=== PATIENT | female | born 1995 | race Caucasian/White ===

== ENCOUNTER 2016-07-23 20:42 | Emergency (ER) | payer OTHER ==
[~2016-07-23] VITALS: Ht 177.8 cm; Wt 144.0 kg
[~2016-07-23 20:42] MED LIST: CEPH500C3 PO; ZOFR4TAB3 PO
[2016-07-23 20:44] VITALS: BP 164/90; PULSE 104; RESP 18; TEMP 98.4; O2SAT 97
[2016-07-23] MEDS ORDERED: POLY10O EACH EYE (21:51)
[2016-07-23] MEDS ORDERED: FEXO15TA PO (21:51)
--- NOTE | 2016-07-23 21:55 | PD ---
HPI Chief Complaint: Eye Problems/Injury Time Seen by Provider: 21:52 Travel History International Travel<30 days: No Contact w/Intl Traveler<30days: No Traveled to known affect area: No History of Present Illness HPI 20-year-old white female presents to emergency department with complains of bilateral eye irritation. She states that she has noted that she has had some tearing coming from her left eye. Her eye is becoming somewhat red and injected. He feels irritated. She has been rubbing her eyes. She works at a veterinary clinic. She states that she did not get anything in her eye as far she knows. She does have seasonal allergies and usually takes Lori but hasn' t been out. She denies any fever or chills. She always has a runny nose some congestion. No diplopia, blurred vision, photophobia, no foreign body sensation , matting. Slight irritation and itching. PFSH Past Medical History Narrative Medical sEASONAL ALLERGIES Developmental Delay: No Diminished Hearing: No Genitourinary: Yes (UTI'S) Immunizations Current: Yes Tetanus Vaccination: > 5 Years ?: Not LMP: 07/19/16 : 0 Past Surgical History Surgical History: No Previous Surgery Social History Alcohol Use: Yes Tobacco Use: No Substance Use: No Allergies-Medications (Allergen,Severity, Reaction): Coded Allergies: No Known Allergies (Verified , 07/23/16) Reported Meds & Prescriptions Reported Meds & Active Scripts Active Lori Allergy (Fexofenadine HCl) 180 Mg Tab 180 Mg PO DAILY Polytrim Opth Drops (Polymyxin/Trimethoprim Sulfate) 10,000-0.1 Unit/Ml-% Soln 1 Drop EACH EYE 4-6HR 7 Days Reported Zofran ODT (Ondansetron HCl) 4 Mg Tab 4 Mg PO Q4HR PRN Keflex (Cephalexin Monohydrate) 500 Mg Cap 500 Mg PO Q8 Review of Systems Except as stated in HPI: all other systems reviewed are Neg General / Constitutional: No: Fever, Chills Eyes: Positive: Redness, Tearing, No: Diploplia, Blurred Vision, Photophobia, Drainage, Foreign Body Sensation, Pain, Visual changes HENT: No: Headaches, Sore Throat Cardiovascular: No: Chest Pain or Discomfort, Tachycardia Respiratory: No: Cough, Shortness of Breath Gastrointestinal: No: Nausea, Vomiting Physical Exam Narrative GENERAL: Well-developed, well-nourished in no acute distress. Nontoxic appearing. HEAD: Normocephalic, atraumatic. EYES: Pupils equal round and reactive. Extraocular motions intact. No scleral icterus. Mild injection bilaterally with slight clear tearing from the left eye. No purulent drainage. ENT: TMs clear without erythema. The external auditory canals clear. Nose: clear . Posterior pharynx is pink and moist. No tonsillar edema or exudate. Uvula midline. Airway patent. NECK: Trachea midline.Supple, nontender, moves head freely. No central bony tenderness or spasm. CARDIOVASCULAR: Regular rate and rhythm without murmurs, gallops, or rubs. RESPIRATORY: Clear to auscultation. Breath sounds equal bilaterally. No wheezes , rales, or rhonchi. GASTROINTESTINAL: Abdomen soft, non-tender, nondistended. No hepato-splenomegaly , or palpable masses. No guarding. EXTREMITIES: No clubbing, cyanosis, or edema. No joint tenderness, effusion, or edema noted. BACK: Nontender without deformity or crepitance. No flank tenderness. Data Data Last Documented VS Vital Signs Date Time Temp Pulse Resp B/P Pulse Ox O2 Delivery O2 Flow Rate FiO2 07/23/16 20:44 98.4 104 18 164/90 97 Room Air Orders Polymyxin/Trimethop Opht Soln (Polytrim (07/23/16 22:00) MDM Medical Decision Making Medical Screen Exam Complete: Yes Emergency Medical Condition: Yes Medical Record Reviewed: Yes Differential Diagnosis MDM: High Differential diagnoses: Acute conjunctivitis (bacterial, viral, allergic, traumatic), glaucoma, iritis, traumatic globe injury, foreign body, corneal abrasion, corneal ulcer, diabetic retinopathy, photokeratitis, herpes keratitis , CMV retinitis Narrative Course Patient is given Polytrim ophthalmic drops bilaterally. This is conjunctivitis Diagnosis Primary Impression: Conjunctivitis Qualified Code: H10.33 - Acute conjunctivitis of both eyes, unspecified acute conjunctivitis type Additional Instructions: Rest. Wash eyelashes with baby shampoo 3 times daily. Warm compresses. Polytrim ophthalmic drops. Followup with an eye doctor in one week. Follow-up with a medical doctor one week. Return to the ER if any problems. Med/Other Pt SpecificInfo: Prescription(s) given Scripts Fexofenadine (Lori Allergy)180 Mg [id number] Mg PO DAILY #30 TAB Ref 0 Prov:Dimas Hills MD 07/23/16 Polymyxin B-Trimethoprim Opth Drops (Polytrim Opth Drops)10,000-0.1 Unit/Ml-% Soln1 Drop EACH EYE 4-6HR 7 Days Prov:Dimas Hills MD 07/23/16 Disposition: 01 DISCHARGE HOME Condition: Stable Torin Marti Jul 23, 2016 21:55
[2016-07-23] MEDS ORDERED: POLYMYXIN/TRIMETHOPRIM OPHT SOLN 10 ML BTL EACH EYE ONE (22:00)
== END 2016-07-23 22:20 | disposition home or self-care (01) ==
LOC: NEPB 20:42
DX: H10.33 Unspecified acute conjunctivitis, bilateral (principal)
CPT/HCPCS: 99282

== ENCOUNTER 2017-11-12 20:25 | Emergency (ER) | payer OTHER ==
[~2017-11-12] VITALS: Ht 175.3 cm; Wt 154.0 kg
[~2017-11-12 20:25] MED LIST changes: +FEXO15TA PO; +POLY10O EACH EYE
[2017-11-12 20:29] VITALS: BP 168/83; PULSE 105; RESP 18; TEMP 99.5; O2SAT 100
[2017-11-12] MEDS ORDERED: PROCHLORPERAZINE INJ 10 MG/2 ML VIAL IV PUSH ONE (20:45)
[2017-11-12] MEDS ORDERED: SODIUM CHLOR 0.9% 1000 ML INJ 1,000 ML IV ONE (20:45)
--- NOTE | 2017-11-12 20:51 | PD ---
HPI Chief Complaint: Abdominal Pain Time Seen by Provider: 20:36 Travel History International Travel<30 days: No Contact w/Intl Traveler<30days: No Traveled to known affect area: No History of Present Illness HPI The patient is a 22 year old female who presents to the [facility] emergency department with a history of abdominal pain that reportedly began on Saturday night. Initially the pain was generalized in bilateral lower quadrants of the abdomen. She reports that on Saturday it seemed to be improving, however it gradually got worse again throughout the day. Patient reports the pain is now sharp in character. She reports that she has increased pain with moving her bowels or urinating although she denies dysuria, urinary frequency, or urinary urgency. She denies having any vaginal discharge. She reports that today the pain became localized to the right lower quadrant. She reports having pain with jumping. She reports having nausea without vomiting. She denies having any diarrhea. Her last bowel movement was earlier today. She denies having any blood in her stool or black or tarry stools. She reports being sexually active, however she does not think that she is . Her last menstrual cycle was October 13, 2017. She denies having any known fevers, however she has had chills today. She denies on review of systems having any cough, congestion, neck pain, chest pain, shortness of breath, or neurologic symptoms. [facility] Past Medical History Narrative Medical The patient's past medical history is reportedly none. Medical History: Denies Significant Hx Developmental Delay: No Diminished Hearing: No Genitourinary: Yes (UTI'S) Immunizations Current: Yes Tetanus Vaccination: > 5 Years Influenza Vaccination: No ?: Not LMP: 10/13/17 : 0 Past Surgical History Narrative Surgical The patient's past surgical history is reportedly none. Surgical History: No Previous Surgery Social History Alcohol Use: Yes Tobacco Use: No Substance Use: No Allergies-Medications (Allergen,Severity, Reaction): Coded Allergies: aspartame (Verified Allergy, Mild, 11/12/17) Reported Meds & Prescriptions Reported Meds & Active Scripts Active Lori Allergy (Fexofenadine HCl) 180 Mg Tab 180 Mg PO DAILY Polytrim Opth Drops (Polymyxin/Trimethoprim Sulfate) 10,000-0.1 Unit/Ml-% Soln 1 Drop EACH EYE 4-6HR 7 Days Reported Zofran ODT (Ondansetron HCl) 4 Mg Tab 4 Mg PO Q4HR PRN Keflex (Cephalexin Monohydrate) 500 Mg Cap 500 Mg PO Q8 Review of Systems Except as stated in HPI: all other systems reviewed are Neg General / Constitutional: Positive: Chills, No: Fever Eyes: No: Visual changes HENT: No: Headaches Cardiovascular: No: Chest Pain or Discomfort Respiratory: No: Shortness of Breath Gastrointestinal: Positive: Nausea, Abdominal Pain, No: Vomiting, Diarrhea Genitourinary: No: Urgency, Frequency, Dysuria, Discharge, Vaginal Bleeding Musculoskeletal: No: Pain Skin: No Rash Neurologic: No: Weakness Psychiatric: No: Depression Endocrine: No: Polydipsia Hematologic/Lymphatic: No: Easy Bruising Physical Exam Narrative General: The patient is a well-developed well-nourished female in no acute distress. Head and Neck exam: Head is normocephalic atraumatic. Eyes: EOMI, pupils are equal round and reactive to light. Nose: Midline septum with pink mucous membranes Mouth: Dentition unremarkable. Moist mucus membranes. Posterior oropharynx is not erythematous. No tonsillar hypertrophy. Uvula midline. Airway patent. Neck: No palpable lymphadenopathy. No nuchal rigidity. No thyromegaly. Cardiovascular: Sinus tachycardia in the low 100 without murmurs, gallops, or rubs. No pulse deficit to the extremities on simultaneous auscultation and palpation of her radial artery. Lungs: Clear to auscultation bilaterally. No wheezes, rhonchi, or rales. Abdomen: Soft, with tenderness on palpation of the right lower quadrant of the abdomen. The patient has tenderness on palpation over McBurney's point. Negative Rovsing sign. No other tenderness on palpation of the other quadrants of the abdomen. No guarding, rebound, or rigidity. Negative Crockett sign. Normal bowel sounds are audible. Extremities: No clubbing or cyanosis, trace pedal edema bilateral lower extremely. 2+ pulses in all 4 extremities. No calf tenderness on palpation. Back: No spinous process tenderness to palpation. No costovertebral angle tenderness to palpation. Neurologic Exam: Grossly nonfocal. Skin Exam: No rash noted. Intact skin that is warm and dry. Data Data Last Documented VS Vital Signs Date Time Temp Pulse Resp B/P (MAP) Pulse Ox O2 Delivery O2 Flow Rate FiO2 11/12/17 20:29 99.5 105 18 168/83 (111) 100 Orders Orders Complete Blood Count With Diff (11/12/17 20:45) Comprehensive Metabolic Panel (11/12/17 20:45) C-Reactive Protein (Crp) (11/12/17 20:45) Lipase (11/12/17 20:45) Urinalysis - C+S If Indicated (11/12/17 20:45) Magnesium (Mg) (11/12/17 20:45) Ct Abd/Pel W Iv Contrast(Rout) (11/12/17 20:45) Iv Access Insert/Monitor (11/12/17 20:45) Ecg Monitoring (11/12/17 20:45) Oximetry (11/12/17 20:45) Ed Urine Pregnancytest Poc (11/12/17 20:45) Sodium Chlor 0.9% 1000 Ml Inj (Ns 1000 M (11/12/17 20:45) Prochlorperazine Inj (Compazine Inj) (11/12/17 20:45) Iohexol 350 Inj (Omnipaque 350 Inj) (11/12/17 22:39) Labs Laboratory Tests Test 11/12/17 20:50 11/12/17 21:00 Urine Color YELLOW Urine Turbidity CLEAR Urine pH 6.5 Urine Specific [place] 1.021 Urine Protein NEG mg/dL Urine Glucose (UA) NEG mg/dL Urine Ketones NEG mg/dL Urine Occult Blood NEG Urine Nitrite NEG Urine Bilirubin NEG Urine Urobilinogen LESS THAN 2.0 MG/DL Urine Leukocyte Esterase NEG Urine RBC LESS THAN 1 /hpf Urine WBC 1 /hpf Urine Squamous Epithelial Cells 3 /hpf Urine Hyaline Casts 2 /lpf Microscopic Urinalysis Comment CULT NOT INDICATED White Blood Count 17.1 TH/MM3 Red Blood Count 4.53 MIL/MM3 Hemoglobin 13.2 GM/DL Hematocrit 38.0 % Mean Corpuscular Volume 84.0 FL Mean Corpuscular Hemoglobin 29.2 PG Mean Corpuscular Hemoglobin Concent 34.7 % Red Cell Distribution Width 13.0 % Platelet Count 356 TH/MM3 Mean Platelet Volume 7.3 FL Neutrophils (%) (Auto) 73.0 % Lymphocytes (%) (Auto) 18.6 % Monocytes (%) (Auto) 4.9 % Eosinophils (%) (Auto) 2.9 % Basophils (%) (Auto) 0.6 % Neutrophils # (Auto) 12.5 TH/MM3 Lymphocytes # (Auto) 3.2 TH/MM3 Monocytes # (Auto) 0.8 TH/MM3 Eosinophils # (Auto) 0.5 TH/MM3 Basophils # (Auto) 0.1 TH/MM3 CBC Comment DIFF FINAL Differential Comment Blood Urea Nitrogen 10 MG/DL Creatinine 0.91 MG/DL Random Glucose 91 MG/DL Total Protein 7.7 GM/DL Albumin 3.8 GM/DL Calcium Level 8.7 MG/DL Magnesium Level 1.8 MG/DL Alkaline Phosphatase 53 U/L Aspartate Amino Transf (AST/SGOT) 22 U/L Alanine Aminotransferase (ALT/SGPT) 41 U/L Total Bilirubin 0.4 MG/DL Sodium Level 139 MEQ/L Potassium Level 3.7 MEQ/L Chloride Level 107 MEQ/L Carbon Dioxide Level 22.3 MEQ/L Anion Gap 10 MEQ/L Estimat Glomerular Filtration Rate 76 ML/MIN C-Reactive Protein 0.59 MG/DL Lipase 186 U/L MDM Medical Decision Making Medical Screen Exam Complete: Yes Emergency Medical Condition: Yes Medical Record Reviewed: Yes Differential Diagnosis Appendicitis, versus ovarian cyst, versus ectopic , versus mesenteric adenitis Narrative Course During the course of the patient's emergency department visit, the patient's history, examination, and differential diagnosis were reviewed with the patient. The patient was placed on a site monitor with oximetry and frequent blood pressure monitoring. The patient had IV access obtained and blood work sent for analysis. The patient was initially provided patient normal saline 1 L IV fluid bolus, Compazine 5 mg IV. The patient was offered pain medication, however the patient reports that she prefers to wait for the tests to be done. The patient's laboratory studies were reviewed and remarkable for a white count of 17.1, hemoglobin 13.2, platelets 356 with 73 neutrophils. CMP is remarkable for a GFR of 76, C-reactive protein is 0.59, lipase 186, urinalysis within normal limits, bedside test is negative. Radiology studies were reviewed and remarkable for Last Impressions Abdomen/Pelvis CT 11/12/172044 Signed Impressions: CONCLUSION: 1. Negative for an acute process. 2. I do not see an etiology of patient's right-sided abdominal pain and fever. The patient has classic symptoms of appendicitis, in spite of the CT scan being negative we did have a lengthy discussion regarding admission for observation. The patient's mother is a charge nurse in the emergency department and prefers to monitor her at home. I recommended that she not take any fever dip painter her pain medication at home in order to not mask worsening symptoms. I instructed them that if her symptoms are worsening, she develops fever, or vomiting, she should report back immediately to the emergency department. I recommended that she follow-up to be reexamined in the next 12 hours either by her primary care physician or physician in the emergency department if the symptoms do continue. The patient expressed understanding and was agreeable with this plan. Diagnosis Primary Impression: Abdominal pain Qualified Codes: R10.31 - Right lower quadrant pain Referrals: Primary Care Physician 1 day Patient Instructions: Abdominal Pain (ED), General Instructions Med/Other Pt SpecificInfo: No Meds Exist/No RX given Disposition: 01 DISCHARGE HOME Condition: Stable Desi Delgado MD Nov 12, 2017 20:51
[2017-11-12 21:17] LABS: AUTOMATED NEUTROPHIL # 12.5 TH/MM3 (1.8-7.7); BASOPHIL # 0.1 TH/MM3 (0-0.2); BASOPHIL % 0.6 % (0.0-2.0); EOSINOPHIL # 0.5 TH/MM3 (0-0.4); EOSINOPHIL % 2.9 % (0.0-4.0); HEMOGLOBIN 13.2 GM/DL (11.6-15.3); LYMPH % 18.6 % (9.0-44.0); LYMPHOCYTE # 3.2 TH/MM3 (1.0-4.8); MEAN CORPUSCULAR HEMOGLOBIN 29.2 PG (27.0-34.0); MEAN CORPUSCULAR HGB CONC 34.7 % (32.0-36.0); MEAN PLATELET VOLUME 7.3 FL (7.0-11.0); MONO % 4.9 % (0.0-8.0); MONOCYTE # 0.8 TH/MM3 (0-0.9); PLATELET COUNT 356 TH/MM3 (150-450); RED BLOOD COUNT 4.53 MIL/MM3 (4.00-5.30); WHITE BLOOD COUNT 17.1 TH/MM3 (4.0-11.0)
[2017-11-12 21:31] LABS: ALBUMIN 3.8 GM/DL (3.4-5.0); AST (GOT) 22 U/L (15-37); BICARBONATE 22.3 MEQ/L (21.0-32.0); BLOOD UREA NITROGEN 10 MG/DL (7-18); CALCIUM 8.7 MG/DL (8.5-10.1); CHLORIDE 107 MEQ/L (98-107); CREATININE 0.91 MG/DL (0.50-1.00); GLOMERULAR FILTRATION RATE 76 ML/MIN (>89); GLUCOSE,RANDOM 91 MG/DL (74-106); MAGNESIUM 1.8 MG/DL (1.5-2.5); SODIUM (NA) 139 MEQ/L (136-145)
[2017-11-12 21:32] LABS: ALT (GPT) 41 U/L (10-53); C-REACTIVE PROTEIN 0.59 MG/DL (0.00-0.30)
[2017-11-12 21:35] LABS: ALKALINE PHOSPHATASE 53 U/L (45-117); TOTAL BILIRUBIN ADULT 0.4 MG/DL (0.2-1.0); TOTAL PROTEIN 7.7 GM/DL (6.4-8.2)
[2017-11-12 21:43] LABS: BILIRUBIN, URINE NEG (NEG); BLOOD, URINE NEG (NEG); GLUCOSE,URINE NEG (NEG); HYALINE CAST, URINE 2 /lpf (RARE); KETONE, URINE NEG (NEG); NITRITE,URINE NEG (NEG); PH, URINE 6.5 (5.0-8.5); SQUAMOUS EPITHELIAL CELL URINE 3 /hpf (0-5); URINE COLOR YELLOW (YELLW/STRAW); URINE LEUKOCYTE ESTERASE NEG (NEG)
[2017-11-12] MEDS ORDERED: IOHEXOL 350 MG/ML 10 ML VIAL (for RAD DIAG) IVCONTRAST ONE (22:39)
--- NOTE | 2017-11-12 22:44 | RADRPT ---
EXAM DATE: 11/12/2017 10:38 PM EDT AGE/SEX: 22 years / Female INDICATIONS: Right side abdominal pain, fever. CLINICAL DATA: This is the patient's initial encounter. Patient reports that signs and symptoms have been present for 3 days and indicates a pain score of 8/10. MEDICAL/SURGICAL HISTORY: None. None. ORAL CONTRAST: No oral contrast ingested. RADIATION DOSE: 37.59 CTDI (mGy) ; Patient body habitus COMPARISON: No prior exams available for comparison. TECHNIQUE: Multiple contiguous axial images were obtained through the abdomen and pelvis following b olus infusion of 95 ml Omnipaque 350 (iohexol) nonionic water-soluble contrast as a single exam dos e. No oral contrast ingested. Using automated exposure control and adjustment of the mA and/or kV ac cording to patient size, the radiation dose was kept as low as reasonably achievable to obtain optima l diagnostic quality images. FINDINGS: The lower lungs are clear. There is no pericardial effusion Liver unremarkable. Contracted gallbladder. Spleen and pancreas unremarkable Adrenal glands appear normal Symmetrical renal function without inflammatory changes Region of the cecum and terminal ileum unremarkable with a normal size appendix. There are no inflammatory changes evident the abdomen And pelvis prominent uterus is evident. There is no free fluid. Review of bone windows reveals degenerative changes lower lumbar spine and SI joints.: CONCLUSION: 1. Negative for an acute process. 2. I do not see an etiology of patient's right-sided abdominal pain and fever. Electronically signed by: Jak Cuadra MD 11/12/2017 10:43 PM EDT
[2017-11-13] MEDS ORDERED: IBUP-232 PO (18:31)
[2017-11-13] MEDS ORDERED: PROM25TA10 PO (18:31)
== END 2017-11-13 00:11 | disposition home or self-care (01) ==
LOC: NEPE 20:25
DX: R10.31 Right lower quadrant pain (principal); R11.0 Nausea
CPT/HCPCS: 74177; 80053; 81001; 83690; 83735; 84703; 85025; 86140; 96361; 96374; 99284; J0780; J7030; Q9967

== ENCOUNTER 2017-11-13 14:40 | Emergency (ER) | payer OTHER ==
[~2017-11-13] VITALS: Ht 177.8 cm; Wt 150.0 kg
[2017-11-13 14:43] VITALS: BP 184/81; PULSE 110; RESP 16; TEMP 100; O2SAT 97
[2017-11-13] MEDS ORDERED: SODIUM CHLOR 0.9% 1000 ML INJ 1,000 ML IV SCH (14:56)
[2017-11-13] MEDS ORDERED: SODIUM CHLORIDE 0.9% FLUSH 10 ML FLUSH IV FLUSH PRN (15:00)
[2017-11-13] MEDS ORDERED: MORPHINE SULFATE 4 MG/ML INJ IV PUSH ONE (15:00)
[2017-11-13] MEDS ORDERED: KETOROLAC TROMETHAMINE 30 MG/ML (IVP) VIAL IVP ONE (15:00)
[2017-11-13] MEDS ORDERED: ONDANSETRON ODT 4 MG TAB PO ONE (15:00)
--- NOTE | 2017-11-13 15:04 | PD ---
HPI Chief Complaint: Abdominal Pain Time Seen by Provider: 14:47 Travel History International Travel<30 days: No Contact w/Intl Traveler<30days: No Traveled to known affect area: No History of Present Illness HPI The patient is a 22-year-old female who presents to the emergency department for abdominal pain and fever. The patient states her abdominal pain started several days ago, on Saturday. The abdominal pain initially was generalized upper quadrant, however, yesterday localized to lower aspect of the abdomen. The patient also had a fever. The patient was seen in the emergency department yesterday where she had blood work performed, UA performed, and a CT of the abdomen and pelvis with IV contrast but no oral contrast. The CT was negative for appendicitis at that time, white count was elevated, but UA was negative. The patient was discharged home. The patient now has increasing abdominal pain that is localized to the right lower quadrant with nausea and vomiting. She denies any diarrhea. The patient denies any dysuria, frequency, urgency, or hematuria. She denies any vaginal bleeding or discharge. The patient's last menstrual cycle was on the of last month, she is sexually active with one sexual partner. She denies any history of STI's or bacterial vaginosis. Symptoms are moderate. PFSH Past Medical History Developmental Delay: No Diminished Hearing: No Genitourinary: Yes (UTI'S) Immunizations Current: Yes ?: Not : 0 Social History Alcohol Use: Yes Tobacco Use: No Substance Use: No Allergies-Medications (Allergen,Severity, Reaction): Coded Allergies: aspartame (Verified Allergy, Mild, 11/12/17) Reported Meds & Prescriptions Reported Meds & Active Scripts Active Lori Allergy (Fexofenadine HCl) 180 Mg Tab 180 Mg PO DAILY Polytrim Opth Drops (Polymyxin/Trimethoprim Sulfate) 10,000-0.1 Unit/Ml-% Soln 1 Drop EACH EYE 4-6HR 7 Days Reported Zofran ODT (Ondansetron HCl) 4 Mg Tab 4 Mg PO Q4HR PRN Keflex (Cephalexin Monohydrate) 500 Mg Cap 500 Mg PO Q8 Review of Systems Except as stated in HPI: all other systems reviewed are Neg General / Constitutional: Positive: Fever HENT: No: Sore Throat Cardiovascular: No: Chest Pain or Discomfort Respiratory: No: Cough, Shortness of Breath Gastrointestinal: Positive: Nausea, Vomiting, Abdominal Pain, No: Diarrhea Genitourinary: Positive: Pelvic Pain, No: Urgency, Frequency, Dysuria, Hematuria Skin: No Rash Physical Exam Narrative GENERAL: Awake, alert, pleasant 22-year-old female who appears her stated age and is in no acute respiratory distress. SKIN: Focused skin assessment warm/dry. HEAD: Atraumatic. Normocephalic. EYES: Pupils equal and round. No scleral icterus. No injection or drainage. ENT: No nasal bleeding or discharge. Mucous membranes pink and moist. NECK: Trachea midline. No JVD. CARDIOVASCULAR: Regular, tachycardic with a heart rate of 110. RESPIRATORY: No accessory muscle use. Clear to auscultation. Breath sounds equal bilaterally. GASTROINTESTINAL: Abdomen soft, obese, tender palpation right lower quadrant. No guarding or rigidity. Back: No CVA tenderness. Pelvic: The exam was performed in the presence of a female nurse. External examination reveals no rashes or lesions. Speculum examination reveals scant white to pink discharge in the vaginal vault. Cervix is closed. No adnexal tenderness. MUSCULOSKELETAL: No obvious deformities. No clubbing. No cyanosis. No edema. NEUROLOGICAL: Awake and alert. No obvious cranial nerve deficits. Motor grossly within normal limits. Normal speech. PSYCHIATRIC: Appropriate mood and affect; insight and judgment normal. Data Data Last Documented VS Vital Signs Date Time Temp Pulse Resp B/P (MAP) Pulse Ox O2 Delivery O2 Flow Rate FiO2 11/13/17 14:43 100.0 110 16 184/81 (115) 97 Orders Orders Complete Blood Count With Diff (11/13/17 14:56) Comprehensive Metabolic Panel (11/13/17 14:56) Lipase (11/13/17 14:56) Lactic Acid (11/13/17 14:56) Iv Access Insert/Monitor (11/13/17 14:56) Ecg Monitoring (11/13/17 14:56) Oximetry (11/13/17 14:56) Morphine Inj (Morphine Inj) (11/13/17 15:00) Sodium Chlor 0.9% 1000 Ml Inj (Ns 1000 M (11/13/17 14:56) Sodium Chloride 0.9% Flush (Ns Flush) (11/13/17 15:00) Ketorolac Inj (Toradol Inj) (11/13/17 15:00) Ed Urine Pregnancytest Poc (11/13/17 14:56) Ondansetron Odt (Zofran Odt) (11/13/17 15:00) Gc And Chlamydia Pcr (11/13/17 14:56) Blood Culture (11/13/17 15:19) Urinalysis - C+S If Indicated (11/13/17 15:29) Wet Prep Profile (11/13/17 15:55) Metoclopramide Inj (Reglan Inj) (11/13/17 16:45) Ct Pelvis W Iv Contrast(Rout) (11/13/17 ) Iohexol 350 Inj (Omnipaque 350 Inj) (11/13/17 18:14) Ed Discharge Order (11/13/17 18:28) Labs Laboratory Tests Test 11/13/17 15:25 11/13/17 15:29 11/13/17 15:45 Lactic Acid Level 0.8 mmol/L White Blood Count 10.2 TH/MM3 Red Blood Count 4.56 MIL/MM3 Hemoglobin 13.4 GM/DL Hematocrit 39.0 % Mean Corpuscular Volume 85.3 FL Mean Corpuscular Hemoglobin 29.4 PG Mean Corpuscular Hemoglobin Concent 34.5 % Red Cell Distribution Width 13.5 % Platelet Count 309 TH/MM3 Mean Platelet Volume 7.3 FL Neutrophils (%) (Auto) 76.5 % Lymphocytes (%) (Auto) 13.9 % Monocytes (%) (Auto) 6.4 % Eosinophils (%) (Auto) 2.5 % Basophils (%) (Auto) 0.7 % Neutrophils # (Auto) 7.8 TH/MM3 Lymphocytes # (Auto) 1.4 TH/MM3 Monocytes # (Auto) 0.7 TH/MM3 Eosinophils # (Auto) 0.3 TH/MM3 Basophils # (Auto) 0.1 TH/MM3 CBC Comment DIFF FINAL Differential Comment Blood Urea Nitrogen 6 MG/DL Creatinine 0.78 MG/DL Random Glucose 97 MG/DL Total Protein 8.0 GM/DL Albumin 3.8 GM/DL Calcium Level 8.7 MG/DL Alkaline Phosphatase 50 U/L Aspartate Amino Transf (AST/SGOT) 17 U/L Alanine Aminotransferase (ALT/SGPT) 32 U/L Total Bilirubin 0.9 MG/DL Sodium Level 138 MEQ/L Potassium Level 3.3 MEQ/L Chloride Level 104 MEQ/L Carbon Dioxide Level 22.7 MEQ/L Anion Gap 11 MEQ/L Estimat Glomerular Filtration Rate 91 ML/MIN Lipase 114 U/L Clue Cells (Wet Prep) NONE SEEN Vaginal Trichomonas (Wet Prep) NONE SEEN Vaginal Yeast (Wet Prep) NONE SEEN Chlamydia trachomatis DNA (PCR) NOT DETECTED Neisseria gonorrhoeae DNA (PCR) NOT DETECTED MDM Medical Decision Making Medical Screen Exam Complete: Yes Emergency Medical Condition: Yes Medical Record Reviewed: Yes Interpretation(s) Last Impressions Pelvis CT 11/13/17 0000 Signed Impressions: CONCLUSION: 1. Stable CT appearance of the pelvis with no acute findings. Laboratory Tests Test 11/13/17 15:25 11/13/17 15:29 11/13/17 15:45 Lactic Acid Level 0.8 mmol/L White Blood Count 10.2 TH/MM3 Red Blood Count 4.56 MIL/MM3 Hemoglobin 13.4 GM/DL Hematocrit 39.0 % Mean Corpuscular Volume 85.3 FL Mean Corpuscular Hemoglobin 29.4 PG Mean Corpuscular Hemoglobin Concent 34.5 % Red Cell Distribution Width 13.5 % Platelet Count 309 TH/MM3 Mean Platelet Volume 7.3 FL Neutrophils (%) (Auto) 76.5 % Lymphocytes (%) (Auto) 13.9 % Monocytes (%) (Auto) 6.4 % Eosinophils (%) (Auto) 2.5 % Basophils (%) (Auto) 0.7 % Neutrophils # (Auto) 7.8 TH/MM3 Lymphocytes # (Auto) 1.4 TH/MM3 Monocytes # (Auto) 0.7 TH/MM3 Eosinophils # (Auto) 0.3 TH/MM3 Basophils # (Auto) 0.1 TH/MM3 CBC Comment DIFF FINAL Differential Comment Blood Urea Nitrogen 6 MG/DL Creatinine 0.78 MG/DL Random Glucose 97 MG/DL Total Protein 8.0 GM/DL Albumin 3.8 GM/DL Calcium Level 8.7 MG/DL Alkaline Phosphatase 50 U/L Aspartate Amino Transf (AST/SGOT) 17 U/L Alanine Aminotransferase (ALT/SGPT) 32 U/L Total Bilirubin 0.9 MG/DL Sodium Level 138 MEQ/L Potassium Level 3.3 MEQ/L Chloride Level 104 MEQ/L Carbon Dioxide Level 22.7 MEQ/L Anion Gap 11 MEQ/L Estimat Glomerular Filtration Rate 91 ML/MIN Lipase 114 U/L Clue Cells (Wet Prep) NONE SEEN Vaginal Trichomonas (Wet Prep) NONE SEEN Vaginal Yeast (Wet Prep) NONE SEEN Chlamydia trachomatis DNA (PCR) NOT DETECTED Neisseria gonorrhoeae DNA (PCR) NOT DETECTED Differential Diagnosis Differential diagnosis includes PID, cervicitis, UTI, tubo-ovarian abscess, appendicitis, diverticulitis, pyelonephritis, atypical cholecystitis. Narrative Course IV was established, labs are drawn and sent, and the patient was placed on cardiac telemetry monitoring and continuous pulse oximetry monitoring. A pelvic exam was completed in the presence of a female nurse. The patient was administered morphine, Toradol, Zofran, and IV fluids. Pelvic exam was unremarkable. Wet prep was negative. Therefore, I reviewed the patient's CT of the abdomen and pelvis from the day before with the radiologist, Dr. Lyle Cuadra. After discussion it was agreed we would repeat the CT, only the pelvic portion with IV contrast to evaluate for possible delayed appendicitis with fever and right lower quadrant abdominal pain. The patient and her mother are comfortable with this plan of care. The patient's UA yesterday was negative, UA test yesterday was negative. Patient's white count has improved from 16-10. Lactic acid is normal. LFTs and lipase are unremarkable. Gonorrhea and Chlamydia are negative. Repeat CT reveals stable appearance, no appendicitis. I did discussion with the mother and the patient regarding possible ultrasound to evaluate possible ovarian cyst versus outpatient follow- up. The family is comfortable following up as an outpatient. They will be provided a copy of her CT results and lab results at discharge. They are advised to return if symptoms worsen or progress. Diagnosis Primary Impression: Abdominal pain Qualified Codes: R10.31 - Right lower quadrant pain Patient Instructions: General Instructions Additional Instructions: Please provide the patient a copy of her CT results and lab results at discharge. Follow-up with your primary physician. He may benefit from outpatient ultrasound. Return if symptoms worsen or progress. Med/Other Pt SpecificInfo: Prescription(s) given Scripts Promethazine (Phenergan) 25 Mg Tablet 25 MG PO Q6H Y for NAUSEA OR VOMITING, #12 TAB 0 Refills Prov: Alberto Lui MD 11/13/17 Ibuprofen (Ibuprofen) 600 Mg Tab 600 MG PO Q6H Y for Pain/Inflammation, #20 TAB 0 Refills Prov: Alberto Lui MD 11/13/17 Disposition: 01 DISCHARGE HOME Condition: Stable Alberto Lui MD Nov 13, 2017 15:04
[2017-11-13 15:41] LABS: AUTOMATED NEUTROPHIL # 7.8 TH/MM3 (1.8-7.7); BASOPHIL # 0.1 TH/MM3 (0-0.2); BASOPHIL % 0.7 % (0.0-2.0); EOSINOPHIL # 0.3 TH/MM3 (0-0.4); EOSINOPHIL % 2.5 % (0.0-4.0); HEMOGLOBIN 13.4 GM/DL (11.6-15.3); LYMPH % 13.9 % (9.0-44.0); LYMPHOCYTE # 1.4 TH/MM3 (1.0-4.8); MEAN CELL VOLUME 85.3 FL (80.0-100.0); MEAN CORPUSCULAR HEMOGLOBIN 29.4 PG (27.0-34.0); MEAN CORPUSCULAR HGB CONC 34.5 % (32.0-36.0); MEAN PLATELET VOLUME 7.3 FL (7.0-11.0); MONO % 6.4 % (0.0-8.0); MONOCYTE # 0.7 TH/MM3 (0-0.9); NEUT % 76.5 % (16.0-70.0); PLATELET COUNT 309 TH/MM3 (150-450); RED BLOOD COUNT 4.56 MIL/MM3 (4.00-5.30); RED CELL DISTRIBUTION WIDTH 13.5 % (11.6-17.2); WHITE BLOOD COUNT 10.2 TH/MM3 (4.0-11.0)
[2017-11-13 16:13] LABS: ALKALINE PHOSPHATASE 50 U/L (45-117); TOTAL BILIRUBIN ADULT 0.9 MG/DL (0.2-1.0)
[2017-11-13 16:14] LABS: ALBUMIN 3.8 GM/DL (3.4-5.0); ALT (GPT) 32 U/L (10-53); AST (GOT) 17 U/L (15-37); BICARBONATE 22.7 MEQ/L (21.0-32.0); BLOOD UREA NITROGEN 6 MG/DL (7-18); CALCIUM 8.7 MG/DL (8.5-10.1); CHLORIDE 104 MEQ/L (98-107); CREATININE 0.78 MG/DL (0.50-1.00); GLOMERULAR FILTRATION RATE 91 ML/MIN (>89); GLUCOSE,RANDOM 97 MG/DL (74-106); SODIUM (NA) 138 MEQ/L (136-145)
[2017-11-13] MEDS ORDERED: METOCLOPRAMIDE HCL 10 MG/2 ML VIAL IV PUSH ONE (16:45)
[2017-11-13] MEDS ORDERED: IOHEXOL 350 MG/ML 10 ML VIAL (for RAD DIAG) IVCONTRAST ONE (18:14)
--- NOTE | 2017-11-13 18:18 | RADRPT ---
EXAM DATE: 11/13/2017 6:12 PM EDT AGE/SEX: 22 years / Female INDICATIONS: RIGHT LOWER QUADRANT PAIN,FEVER,NAUSEA. Previous done last night but increased pain tod ay. CLINICAL DATA: This is the patient's initial encounter. Patient reports that signs and symptoms have been present for 1 day and indicates a pain score of 8/10. MEDICAL/SURGICAL HISTORY: None. None. RADIATION DOSE: 39.78 CTDI (mGy) ; Patient body habitus COMPARISON: [facility] [place], CT ABDOMEN & PELVIS W CONTRAST, 11/12/2017. . TECHNIQUE: Multiple contiguous helical axial images were obtained through pelvis following bolus inf usion of 71 ml Omnipaque 350 (iohexol) nonionic water-soluble contrast as a single exam dose. Imag es were obtained using multiple row detector helical technique. . Using automated exposure control an d adjustment of the mA and/or kV according to patient size, radiation dose was kept as low as reasona kristy achievable to obtain optimal diagnostic quality images. FINDINGS: Bowel/Mesentery: The bowel loops are grossly unremarkable. The sigmoid colon has a normal configura tion. Bladder: Contours are smooth. No filling defects are seen on the delayed images. Retroperitoneum: No evidence of deep pelvic adenopathy. Reproductive Organs: No abnormal masses or calcifications seen. Inguinal: The inguinal region is unremarkable without evidence of adenopathy. Bony Structures: Unremarkable. Free Fluid: None seen. Post Contrast: No abnormal areas of enhancement seen. CONCLUSION: 1. Stable CT appearance of the pelvis with no acute findings. Electronically signed by: Jose Xiong MD 11/13/2017 6:16 PM EDT
[2017-11-13] MEDS ORDERED: IBUP-232 PO (18:31)
[2017-11-13] MEDS ORDERED: PROM25TA10 PO (18:31)
== END 2017-11-13 18:55 | disposition home or self-care (01) ==
LOC: NEPC 14:40
DX: R10.31 Right lower quadrant pain (principal); R50.9 Fever, unspecified; R11.2 Nausea with vomiting, unspecified
CPT/HCPCS: 72193; 80053; 83605; 83690; 85025; 87040; 87210; 87491; 87591; 96361; 96374; 96375; 99285; J1885; J2270; J2765; J7030; Q9967